=== PATIENT | male | born 1980 | race Caucasian/White ===

== ENCOUNTER 2019-05-12 20:03 | Emergency (ER) | payer MEDICAID ==
[~2019-05-12] VITALS: Ht 185.4 cm; Wt 69.6 kg
[2019-05-12 20:06] VITALS: BP 142/56
[2019-05-12] MEDS ORDERED: LIDOCAINE 1%, 10ML INFIL ONE (21:30)
[2019-05-12] MEDS ORDERED: DEXAMETHASONE 4 MG TABLET PO ONE (21:30)
[2019-05-12] MEDS ORDERED: IBUPROFEN 600 MG TABLET PO ONE (21:30)
[2019-05-12] MEDS ORDERED: DEXAMETHASONE 4 MG TABLET ONE (21:35)
[2019-05-12] MEDS ORDERED: IBUPROFEN 200 MG TABLET ONE (21:35)
[2019-05-12] MEDS ORDERED: LIDOCAINE-MPF 1%, 2ML ONE (21:36)
--- NOTE | 2019-05-12 21:42 | NUR ---
CARE ASSUMED FOR MED ADMINISTRATION. MEDS GIVEN CHARTED, 5 RIGHTS VERIFIED.
--- NOTE | 2019-05-12 22:22 | NUR ---
PT DC'D HOME WITH RX X 1 AND UNDERSTANDING OF INSTRUCTIONS. PT TO DC DESK WITHOUT DIFFICULTY.
== END 2019-05-12 22:25 | disposition home or self-care (01) ==
LOC: ED 22:19
DX: H65.02 Acute serous otitis media, left ear (principal)
CPT/HCPCS: 99283; J3490